=== PATIENT | female | born 1965 | race Two or more races ===

== ENCOUNTER → 2024-04-09 | Outpatient (CLI) | payer OTHER | END | disposition home or self-care (01) | LOC: LAB 12:33 | PROVIDERS: ATTEND Nurse Practitioner Family | DX: L02.91 Cutaneous abscess, unspecified (principal) | CPT/HCPCS: 87077; 87186; 87205 ==

== ENCOUNTER 2025-04-30 14:38 | Emergency (ER) | payer OTHER ==
[~2025-04-30] VITALS: Ht 167.6 cm; Wt 76.7 kg
--- NOTE | 2025-04-30 15:27 | ED.PDOC ---
Musculoskeletal HPI Comments A 60 YEAR-OLD FEMALE PRESENTS TO THE ED WITH A CHIEF COMPLAINT OF RIGHT ELBOW PAIN S/P FALL ON HARD TILE EARLIER TODAY. PT STATES SHE HAS HX OF RIGHT ELBOW SURGERY AND FALL AGGRAVATED HER RIGHT ELBOW PAIN AND SWELLING. PT IS ABLE TO MOVE HER RIGHT RIGHT ELBOW WITH NORMAL ROM. PATIENT DENIES FEVER, CHEST PAIN, ABDOMINAL PAIN, NAUSEA, VOMITING, HEADACHE, OR OTHER COMPLAINTS. NO OTHER SYMPTOMS OR MODIFYING FACTORS AT THIS TIME. PATIENT IS ALERT, ORIENTED X 4, AND HAS STEADY GAIT. Chief Complaint: Upper Extremity Time Seen by MD: 15:28 Reviewed Notes: Nurses Notes, Medications, Allergies Allergies: Coded Allergies: NO KNOWN ALLERGIES (Unverified , 04/30/25) Home Meds Active Scripts Naproxen (Naproxen) 500 Mg Tab, 500 MG PO BID, #30 TAB Prov:SHORTY CAMPOVERDE 04/30/25 Information Source: Patient Mode of Arrival: Ambulatory Location: Right Extremity Location: Elbow Timing: Hours Prehospital treatment: None Severity: Moderate Able to Move Extremity: Yes Pain: Moderate Hand Dominance: Right Circumstances: Fall Onset of Symptoms: After Trauma Symptoms: Swelling, Pain DVT Risk Factors: NONE Last Tetanus: UTD Associated signs and symptoms: Elbow pain (RIGHT) Past Medical History PAST MEDICAL HISTORY: Denies Surgical History (Other): RIGHT ELBOW SURGERY STORE COORDINATOR History: No Pertinent STORE COORDINATOR History Family History Family History: Reviewed,noncontributory to illness, No family hx of Cancer, No family hx of DM, No family hx of Heart helena, No family hx of HTN, No family hx ofKidney helena, No family hx of Liver helena, No family hx of Lung helena, No family hx of Stroke Social History Smoker: Non-Smoker Alcohol: Denies ETOH Use Drugs: Denies Drug Use Lives In: Home Constitutional: denies: chills, diaphoresis, fatigue, fever, malaise, sweats, weakness, others EENTM: denies: blurred vision, double vision, ear bleeding, ear discharge, ear drainage, ear pain, ear ringing, eye pain, eye redness, hearing loss, mouth pain, mouth swelling, nasal discharge, nose bleeding, nose congestion, nose pain, photophobia, tearing, throat pain, throat swelling, voice changes, others Respiratory: denies: cough, hemoptysis, orthopnea, SOB at rest, shortness of breath, SOB with excertion, stridor, wheezing, others Cardiovascular: denies: chest pain, dizzy spells, diaphoresis, Dyspnea on exertion, edema, irregular heart beat, left arm pain, lightheadedness, palpitations, PND, syncope, others Gastrointestinal: denies: abdomen distended, abdominal pain, blood streaked bowels, constipated, diarrhea, dysphagia, difficulty swallowing, hematemesis, melena, nausea, poor appetite, poor fluid intake, rectal bleeding, rectal pain, vomiting, others Genitourinary: denies: abnormal vagina bleeding, burning, dyspareunia, dysuria, flank pain, frequency, hematuria, incontinence, pain, , vagina discharge, urgency, others Neurological: denies: dizziness, fainting, headache, left sided numbness, left sided weakness, numbness, paresthesia, pre-existing deficit, right sided numbne ss, right sided weakness, seizure, speech problems, tingling, tremors, weakness, others Musculoskeletal: reports: joint pain, joint swelling, others (RIGHT ELBOW PAIN ); denies: back pain, gout, muscle pain, muscle stiffness, neck pain Integumetry: denies: bruises, change in color, change in hair/nails, dryness, laceration, lesions, lumps, rash, wounds, others Allergic/Immunocompromised: denies: Difficulty Healing, Frequent Infections, Hives, Itching, others Hematologic/Lymphatic: denies: anemia, blood clots, easy bleeding, easy bruising, swollen glands, others Endocrine: denies: excessive hunger, excessive sweating, excessive thirst, excessive urination, flushing, intolerance to cold, intolerance to heat, unexpla ined weight gain, unexplained weight loss, others Psychiatric: denies: anxiety, bipolar disorder, depression, hopeless, panic disorder, schizophrenia, sleepless, suicidal, others All Other Systems: Reviewed and Negative Physical Exam General Appearance: No Apparent Distress, Normal HEENT: Normal ENT Inspection, PERRL/EOMI, Pharynx Normal, TMs Normal Neck: Full Range of Motion, Non-Tender, Normal, Normal Inspection Respiratory: Chest Non-Tender, Lungs Clear, No Accessory Muscle Use, No Respir atory Distress, Normal Breath Sounds Cardiovascular: No Edema, No JVD, No Murmur, No Gallop, Normal Peripheral Pulses, Regular Rate/Rhythm Breast Exam: Deferred Gastrointestinal: No Organomegaly, Non Tender, No Pulsatile Mass, Normal Bowel Sounds, Soft Genitalia: Deferred Pelvic: Deferred Rectal: Deferred Extremities: No calf tenderness, Normal capillary refill, Normal range of motion, No pedal edema, Swelling (AND TENDERNESS ON RIGHT POSTERIOR UPPER FOREARM, NO BONY TENDERNESS AND DEFORMITY. NORMAL ROM. ), Tender (AND SWELLING WITH HEMATOMA AND CONTUSION ON RIGHT POSTERIOR UPPER FOREARM, NO TENDERNESS AND SWELLING ON RIGHT ELBOW. ) Musculoskeletal : Apperance: Normal Neurologic: Alert, senior sales engineer II-XII nml as Tested, No Motor Deficits, Normal Affect, Normal Mood, No Sensory Deficits Cerebellar Function: Normal Reflexes: Normal Skin: Bruises (AND HEMATOMA ON RIGHT P[OSTERIOR UPPER FOREARM, NO OPEN WOUND SEEN. ), Dry, Warm Peripheral Pulses: 2+ carotid (R), 2+ carotid (L), 2+ Radial (R), 2+ Radial (L) Lymphatic: No Adenopathy Was a procedure done? Was a procedure done?: No Differential Diagnosis EXT Differential Diagnosis: Fracture, Sprain, Laceration, Contusion, Strain, Bursitis, Other (HEMATOMA OF RIGHT UPPER FOREARM) X-Ray, Labs, Meds, VS Vital Signs Date Time Temp Pulse Resp B/P (MAP) Pulse Ox O2 Delivery O2 Flow Rate FiO2 04/30/25 16:56 74 18 98 Room Air 04/30/25 16:56 98.2 74 18 144/85 (104) 98 98.2 04/30/25 15:25 98.1 87 18 135/89 (104) 97 98.1 X-Ray, Labs, Meds, VS Comment EXTERNAL MEDICAL RECORDS: NONE INDEPENDENT HISTORIANS: NONE SOCIAL DETERMINANTS OF HEALTH: NONE LABS ORDERED: NONE REVIEWED AND INTERPRETED RESULTS: NONE IMAGING ORDERED: RIGHT ELBOW XRAY: NO FX AND DISLOCATION, SOFT TISSUE SWELLING, READ BY ME, PENDING RADIOLOGIST READING. TREATMENTS ORDERED: ARM SLING AND ICE PACK PATIENT'S CASE AND RESULTS HAVE BEEN DISCUSSED WITH THE ED ATTENDING PHYSICIAN AND THEY AGREE WITH MY PLAN OF CARE. RX: NAPROXEN 500MG I HAVE DISCUSSED IMAGING RESULTS WITH THE PATIENT AND HAVE INSTRUCTED THE PATIENT TO FOLLOW UP WITH THEIR PCP IN 1-2 DAYS. THE PATIENT FULLY UNDERSTANDS THEIR RESULTS AND ARE AWARE THEY NEED TO FOLLOW UP WITH THEIR PCP FOR FURTHER EVALUATION IF THEIR SYMPTOMS PERSIST. Images Reviewed?: Images reviewed and evaluated by me Time of 1ST Reevaluation: 17:14 Reevaluation 1ST: Improved Patient Education/Counseling: Diagnosis, Treatment, Need For Follow Up Family Education/Counseling: No Family Present Medical Screening: No EMC Exist At This Time Departure 1 Departure Time of Disposition: 17:15 Impression: Primary Impression: Traumatic hematoma of right forearm Qualified Codes: S50.11XA - Contusion of right forearm, initial encounter Additional Impression: Contusion of right forearm Qualified Codes: S50.11XA - Contusion of right forearm, initial encounter Disposition: HOME / SELF CARE / HOMELESS Condition: Stable Additional Instructions: FOLLOW-UP WITH PCP IN 1 TO 2 DAYS. TAKE MEDICATIONS PRESCRIBED. RETURN TO ED FOR ANY NEW OR WORSENING SYMPTOMS. e-Prescriptions Naproxen (Naproxen) 500 Mg Tab 500 MG PO BID, #30 TAB Prov: SHORTY CAMPOVERDE 04/30/25 Discharged With: Self Critical Care Note Critical Care Time?: No Stability Stability form required: No Heart Score Heart Score: Heart Score Response (Comments) Value History N/A 0 EKG N/A 0 Age N/A 0 Risk Factors N/A 0 Troponin N/A 0 Total 0 I personally scribed for SHORTY CAMPOVERDE ([email or web address]) on 04/30/25 at 15:27. Electr onically submitted by Lana Golden ([employer]). I personally scribed for SHORTY CAMPOVERDE ([email or web address]) on 04/30/25 at 15:29. Electr onically submitted by Lana Golden ([employer]). I personally scribed for SHORTY CAMPOVERDE ([email or web address]) on 04/30/25 at 16:06. Electr onically submitted by Lana Golden ([employer]). I personally scribed for SHORTY CAMPOVERDE ([email or web address]) on 04/30/25 at 16:07. Electr onically submitted by Lana Golden ([employer]). I personally scribed for SHORTY CAMPOVERDE ([email or web address]) on 04/30/25 at 16:18. Electr onically submitted by Lana Golden ([employer]). SHORTY CAMPOVERDE Apr 30, 2025 15:27
[2025-04-30 16:56] VITALS: BP 144/85; PULSE 74; RESP 18; TEMP 98.2; O2SAT 98
[2025-04-30] MEDS ORDERED: NAPR-746 PO (17:02)
--- NOTE | 2025-04-30 17:36 | DVH ---
EXAM: XY R ELBOW 3 VIEW XRAY CLINICAL HISTORY: FALL, HX OF RIGHT ELBOW INJURY IN THE PAST COMPARISON: None TECHNIQUE: XY R ELBOW 3 VIEW XRAY Findings/Impression: 3 views of the right elbow. There is no evidence of an acute fracture, dislocation, blastic, or lytic lesions. No radiopaque foreign bodies. No joint effusion. Moderate dorsal soft tissue edema.
== END 2025-04-30 17:22 | disposition home or self-care (01) ==
LOC: ER 14:38
DX: S50.11XA Contusion of right forearm, initial encounter (principal); W19.XXXA Unspecified fall, initial encounter; Y93.89 Activity, other specified; Y92.89 Other specified places as the place of occurrence of the external cause; Y99.8 Other external cause status
CPT/HCPCS: 73080

== ENCOUNTER 2025-05-02 08:38 | Outpatient (CLI) | payer OTHER ==
[~2025-05-02 08:38] MED LIST: NAPR-746 PO
[2025-05-02 09:07] LABS: Hematocrit 39.7 % (36.0-46.0); Hemoglobin 13.1 g/dL (12.2-16.2); Mean Corpuscular Hemoglobin 30.1 pg (28.0-32.0); Mean Corpuscular Volume 91.6 fL (80.0-100.0); Nucleated Red Blood Cells % 0.0 %
[2025-05-02 10:21] LABS: Alanine Aminotransferase 14 U/L (7-40); Albumin 4.5 g/dL (3.2-4.8); Alkaline Phosphatase 78 U/L (46-116); Anion Gap 9 (5-15); BUN/Creatinine Ratio 26.3 (10.0-20.0); Bilirubin, Total 0.3 mg/dL (0.2-1.0); Blood Urea Nitrogen 21 mg/dL (9-23); Calcium 10.2 mg/dL (8.7-10.4); Carbon Dioxide 28 mmol/L (20-31); Chloride 106 mmol/L (98-107); Cholesterol 198 mg/dL (< 200); Glucose 94 mg/dL (74-106); HDL Cholesterol 58 mg/dL (40-59); Potassium 4.4 mmol/L (3.5-5.1); Sodium 143 mmol/L (136-145); Total Protein 7.2 g/dL (5.7-8.2); Triglycerides 83 mg/dL (< 150)
[2025-05-02 10:37] LABS: Urine Protein, UAD Negative (Negative)
[2025-05-02 10:50] LABS: Barbiturate Scree,Urine Neg (NEGATIVE); Opiate Scree,Urine Neg (NEGATIVE)
[2025-05-02 10:51] LABS: Amphetamine Screen, Urine Neg (NEGATIVE); Benzodiazephine Screen, Urine Neg (NEGATIVE); Cannabinoid Screen, Urine Neg (NEGATIVE); Cocaine Screen, Urine Neg (NEGATIVE); Phencyclidine Screen, Urine Neg (NEGATIVE)
== END 2025-05-02 17:00 | disposition home or self-care (01) ==
LOC: LAB 08:38
PROVIDERS: ATTEND Internal Medicine
DX: I10 Essential (primary) hypertension (principal); Z13.6 Encounter for screening for cardiovascular disorders; Z13.1 Encounter for screening for diabetes mellitus; Z12.11 Encounter for screening for malignant neoplasm of colon
CPT/HCPCS: 36415; 80053; 80061; 80307; 81001; 82274; 82306; 82607; 83036; 83880; 84443; 84484; 85025